=== PATIENT | male | born 1995 | race Caucasian/White ===

== ENCOUNTER → 2017-07-02 | Outpatient (REF) | payer OTHER | LOC: M SFHCLERA 10:28 | DX: L02.91 Cutaneous abscess, unspecified (principal) | CPT/HCPCS: 87186 ==

== ENCOUNTER 2018-01-15 10:34 | Emergency (ER) | payer OTHER ==
[2018-01-15] MEDS: ACETAMINOPHEN 325 MG TAB PO (11:03)
== END 2018-01-15 11:39 | disposition home or self-care (01) ==
LOC: M ED 10:34
DX: S06.0X0A Concussion without loss of consciousness, initial encounter (principal); W22.8XXA Striking against or struck by other objects, initial encounter; Y92.810 Car as the place of occurrence of the external cause
CPT/HCPCS: 70450

== ENCOUNTER → 2018-03-14 | Outpatient (REF) | payer OTHER ==
[2018-03-14 20:58] LABS: CHLAMYDIA DNA AMPLIFICATION NEGATIVE (NEGATIVE); GC DNA AMPLIFICATION NEGATIVE (NEGATIVE)
== END ==
LOC: M SFHCLERA 15:53
PROVIDERS: ATTEND Nurse Practitioner Family
DX: R30.0 Dysuria (principal)